=== PATIENT | female | born 1940 | race Hispanic/Latino ===

== ENCOUNTER → 2024-04-17 | Outpatient (CLI) | payer MEDICARE ==
--- NOTE | 2024-04-17 13:50 | HMCIMG ---
Exam Type: CT NECK SOFT TISS W/O CONTRAST Clinical Information: cough Comparison Study: none PROTOCOL: Photography is done at 5 millimeter thick intervals for the head. The study was performed in the axial plane, and reconstructed and photographed in sagittal and coronal planes as well. Findings: FINDINGS: Examination is unremarkable except for degenerative changes of the cervical spine. Specifically, no lymphadenopathy is seen. No fluid collections or masses are identified. The vascular, muscular, as well as subcutaneous structures are preserved. No significant paranasal sinus pathology is seen. The base of the skull is unremarkable. I see no significant upper airway abnormalities. IMPRESSION: Essentially unremarkable CT of the neck without contrast. This study was performed using dose reduction techniques to include automated exposure control and/or adjustment of the mA and/or kV according to patient size.
--- NOTE | 2024-04-17 13:50 | HMCIMG ---
CT NONCONTRAST CHEST Comparison Study: none History: COUGH Technique: Helical CT of the chest without IV contrast at 5 mm collimation. Coronal and sagittal reformations also done. CT Dose Index (CTDI): 2.38 mGy Dose Length Product (DLP): 94.8 total mGy-cm Findings: The airway is intact. The trachea and major bronchi are unremarkable. The chest exam shows no pulmonary nodules or masses. Ill-defined infiltrates of the right upper lobe are seen consistent with pneumonia. Follow-up to complete radiographic resolution is advised to rule out underlying persistent lesions after treatment which could indicate underlying neoplastic disease. No pleural effusions are identified. There is no pneumothorax. There is no evidence of pneumomediastinum. The nonenhanced exam of the citlaly and mediastinum is unremarkable. No evidence of hilar enlargement is seen. The aorta shows no aneurysmal dilatation or significant atheromatous calcification. No significant brachiocephalic vascular abnormalities are seen. The heart is unremarkable. It is not enlarged. No significant coronary arterial calcifications are seen. There is no pericardial effusion. The rib cage appears unremarkable. The soft tissues of the chest wall are unremarkable. The dorsal spine shows no significant abnormalities. IMPRESSION: Ill-defined infiltrates of the right upper lobe are seen consistent with pneumonia. Follow-up to complete radiographic resolution is advised to rule out underlying persistent lesions after treatment which could indicate underlying neoplastic disease. This study was performed using dose reduction techniques to include automated exposure control and/or adjustment of the mA and/or kV according to patient size.
== END | disposition home or self-care (01) ==
LOC: RAH 12:55
PROVIDERS: ATTEND Family Medicine
DX: R91.8 Other nonspecific abnormal finding of lung field (principal); M47.812 Spondylosis without myelopathy or radiculopathy, cervical region; R05.3 Chronic cough
CPT/HCPCS: 70490; 71250